=== PATIENT | female | born 1945 | race Caucasian/White ===

== ENCOUNTER 2020-06-16 04:23 | Emergency (ER) | payer MEDICARE ==
[2020-06-16] MEDS ORDERED: NORCO 5-325 TA1 EACH PO (06:00)
[2020-06-16] MEDS ORDERED: ALDACTONE25 MG PO (13:27)
[2020-06-16] MEDS ORDERED: LOPRESSOR25 MG PO (13:27)
[2020-06-16] MEDS ORDERED: LIPITOR40 MG PO (13:28)
[2020-06-16] MEDS ORDERED: LEXAPRO20 MG PO (13:28)
[2020-06-16] MEDS ORDERED: ASPIRIN81 MG PO (13:29)
[2020-06-20] MEDS ORDERED: PERCOCET 5-3251 EACH PO (11:16)
== END 2020-06-16 06:15 | disposition home or self-care (01) ==
LOC: FER 04:23
DX: S52.531A Colles' fracture of right radius, initial encounter for closed fracture (principal); I10 Essential (primary) hypertension; Z98.890 Other specified postprocedural states; W19.XXXA Unspecified fall, initial encounter; Y92.009 Unspecified place in unspecified non-institutional (private) residence as the place of occurrence of the external cause
CPT/HCPCS: 73110; U0002

== ENCOUNTER → 2020-06-20 | Day surgery (SDC) | payer MEDICARE ==
[~2020-06-20] VITALS: Ht 165.1 cm; Wt 77.3 kg
[~2020-06-20] MED LIST: ALDACTONE25 MG PO; ASPIRIN81 MG PO; LEXAPRO20 MG PO; LIPITOR40 MG PO; LOPRESSOR25 MG PO; NORCO 5-325 TA1 EACH PO; PERCOCET 5-3251 EACH PO
[2020-06-20 11:43] LABS: HCT 38.1 % (37.0-47.0); HGB 11.3 g/dl (12.5-16.0); MCH 22.6 pg (25.0-31.0); MCHC 29.7 g/dL (32.0-36.0); MCV 76.4 fL (78.0-100.0); RBC 4.99 M/uL (4.20-5.40); RDW 17.6 % (11.5-14.0); WBC 5.4 K/uL (4.0-10.5)
[2020-06-20 11:52] LABS: ALBUMIN 3.2 g/dL (3.4-5.0); BILIRUBIN - TOTAL 0.4 mg/dL (0.2-1.0); BUN/CREAT RATIO (CALC) 15.9 RATIO; CREATININE 1.38 mg/dL (0.51-0.95); POTASSIUM 4.1 mmol/L (3.5-5.1); TOTAL PROTEIN 6.2 g/dL (6.4-8.2)
== END | disposition home or self-care (01) ==
LOC: FAS 10:15
PROVIDERS: Orthopaedic Surgery
DX: S52.571A Other intraarticular fracture of lower end of right radius, initial encounter for closed fracture (principal); S52.531A Colles' fracture of right radius, initial encounter for closed fracture; W06.XXXA Fall from bed, initial encounter; I10 Essential (primary) hypertension; E78.00 Pure hypercholesterolemia, unspecified; Z88.0 Allergy status to penicillin; Z88.2 Allergy status to sulfonamides
CPT/HCPCS: 36415; 71045; 73100; 76000; 80053; C1713; C1769; J1100; J1170; J2250; J2405; J2704; J2795; J3010; J7120